=== PATIENT | male | born 1990 | race African-American/Black ===

== ENCOUNTER 2020-11-29 12:58 | Emergency (ER) | payer SELFPAY ==
[~2020-11-29] VITALS: Ht 185.4 cm; Wt 86.2 kg
== END 2020-11-29 13:47 | disposition left against medical advice (07) ==
LOC: EDBD 12:58 → ER 12:58
DX: M54.2 Cervicalgia (principal); Z53.21 Procedure and treatment not carried out due to patient leaving prior to being seen by health care provider
CPT/HCPCS: 99282